=== PATIENT | female | born 1970 | race Caucasian/White ===

== ENCOUNTER 2023-08-17 15:15 | Emergency (ER) | payer MEDICAID, SELFPAY ==
[2023-08-17 15:40] VITALS: BP 107/74; PULSE 78; RESP 18; TEMP 36.6; O2SAT 95; BMI 28.3
--- NOTE | 2023-08-17 15:43 | XR_ITS ---
FINAL REPORT CLINICAL HISTORY: fall, left knee pain COMPARISON: None FINDINGS: Three views of the left knee reveal no evidence of fracture or dislocation. The bony alignment is normal. The joint spaces are preserved. There is no evidence of joint effusion. No localized soft tissue abnormality is seen. IMPRESSION: No acute abnormality identified. Reviewed, Interpreted and Dictated by Naveed Leggett III, MD Transcribed by Annel Palmer Authenticated and [facility]
--- NOTE | 2023-08-17 15:43 | XR_ITS ---
FINAL REPORT CLINICAL HISTORY: fall, right knee pain COMPARISON: None FINDINGS: Three views of the right knee reveal no evidence of fracture or dislocation. The bony alignment is normal. The joint spaces are preserved. There is no evidence of joint effusion. No localized soft tissue abnormality is identified. IMPRESSION: No acute abnormality identified. Reviewed, Interpreted and Dictated by Naveed Leggett III, MD Transcribed by Annel Palmer Authenticated and [facility]
--- NOTE | 2023-08-17 15:43 | XR_ITS ---
FINAL REPORT CLINICAL HISTORY: fall, right elbow pain COMPARISON: None FINDINGS: RIGHT ELBOW 3 views were obtained. There is no acute fracture or dislocation. There is no joint effusion. The joint spaces are intact. There is no soft tissue abnormality. IMPRESSION: No acute bony abnormality. Reviewed, Interpreted and Dictated by Naveed Leggett III, MD Transcribed by Annel Palmer Authenticated and [facility]
--- NOTE | 2023-08-17 15:43 | XR_ITS ---
FINAL REPORT CLINICAL HISTORY: fall, right shoulder pain COMPARISON: None FINDINGS: RIGHT SHOULDER: 3 views of the right shoulder were obtained. There is no acute fracture or dislocation. There is mild AC joint degenerative change. There is no soft tissue abnormality. IMPRESSION: No acute bony abnormality. Reviewed, Interpreted and Dictated by Naveed Leggett III, MD Transcribed by Annel Palmer Authenticated and [facility]
--- NOTE | 2023-08-17 15:43 | XR_ITS ---
FINAL REPORT CLINICAL HISTORY: fall, right wrist pain COMPARISON: None FINDINGS: RIGHT WRIST Three views demonstrate no acute fracture or dislocation. The visualized joint spaces are normally aligned. The soft tissues are unremarkable. IMPRESSION: No acute bony abnormality. Reviewed, Interpreted and Dictated by Naveed Leggett III, MD Transcribed by Annel Palmer Authenticated and [facility]
--- NOTE | 2023-08-17 18:27 | EXP.UTC ---
Discharge Plan Disposition Patient Disposition: Home, Self-Care Condition: Good Referrals Follow up/Referrals: Provider,Referral, [Primary Care Provider] - See instructions Activity Restrictions/Add. Instructions Additional Instructions/Restrictions: Take Tylenol/Ibuprofen as needed for pain. Follow up with primary care. Clinical Impressions Clinical Impression: Fall as cause of accidental injury in home as place of occurrence Instructions Patient Instructions: DI for Acute Pain -- Adult, DI for Joint Pain, DI for Musculoskeletal Pain Discharge ED Provider: Екатерина Rivero [facility] General Stated complaint: AO 08-16-23 both knees , head, shoulder Mode of Arrival: Ambulatory Source of Information: Patient Limitations: No Limitations Time Seen by Provider: 08/17/23 16:03 Description of Symptoms (Recalled from Triage Doc. by RN): Pt slipped in a puddle of dog urine. She hurts bilateral knee, right shoulder, and left butt. HEENT Symptoms (Recalled from RN notes): No Resp Symptoms (Recalled from RN notes): No Skin Symptoms (Recalled from RN notes): No MS Symptoms (Recalled from RN notes): Yes Functional Status (Recalled from RN notes): n/a Related Data Allergies Allergy/AdvReac Type Severity Reaction Status Date / Time amitriptyline [From Elavil] Allergy Hives Verified 08/17/23 15:57 diazepam [From Valium] Allergy Other Verified 08/17/23 15:57 doxycycline Allergy Nausea Verified 08/17/23 15:57 gabapentin Allergy Hallucinati Verified 08/17/23 15:57 ng melatonin Allergy Other Verified 08/17/23 15:57 meperidine [From Demerol] Allergy Nausea Verified 08/17/23 15:57 Sulfa (Sulfonamide Allergy Hives Verified 08/17/23 15:57 Antibiotics) Worker's Comp Is this a Worker's Comp case?: No [facility] Disclaimer: The information contained in this section may have been updated after the patient was seen, as this information can be updated by other users. Social History Smoking Status: Never smoker alcohol intake: never current occupational status: employed Travel in the last 8 weeks: Inside the [place] ROS Obtained: Yes All systems reviewed & no additional complaints except as documented Constitutional Constitutional: Reports system reviewed and no additional complaints, except as documented Eyes Eyes: Reports system reviewed and no additional complaints, except as documented ENT Ears, Nose, Mouth, and Throat: Reports system reviewed and no additional complaints, except as documented Cardiovascular Cardiovascular: Reports system reviewed and no additional complaints, except as documented Respiratory Respiratory: Reports system reviewed and no additional complaints, except as documented Gastrointestinal Gastrointestingal: Reports system reviewed and no additional complaints, except as documented Genitourinary Female Genitourinary: Reports system reviewed and no additional complaints, except as documented Musculoskeletal Musculoskeletal: Reports system reviewed and no additional complaints, except as documented, Reports arthralgias, Reports myalgias and Reports radiating pain into limb Integumentary/Breasts Skin/Breast: Reports system reviewed and no additional complaints, except as documented Comments: bruising on bilateral knees Neurologic Neurologic: Reports system reviewed and no additional complaints, except as documented Endocrine Endocrine: Reports system reviewed and no additional complaints, except as documented Hematologic/Lymphatic Henatologic/Lymphatic: Reports system reviewed and no additional complaints, except as documented Allergic/Immunologic Allergic/Immunologic: Reports system reviewed and no additional complaints, except as documented Physical Exam General General appearance: alert and in no apparent distress Head Head exam: atraumatic Eye Eye exam: Present normal appearance ENT ENT exam: Present normal exam, normal oropharynx and mucous membranes moist Neck Neck exam: Present normal inspection Chest Chest inspection: Present normal inspection and symmetric chest wall rise Respiratory Respiratory exam: Present normal lung sounds bilaterally Cardiovascular Cardiovascular exam: Present regular rate and normal rhythm Abdominal Exam Abdominal exam: Present soft and normal bowel sounds Expanded Upper Extremity Exam Right: Shoulder exam: Present full ROM and tenderness Arm exam: Present full ROM and tenderness Elbow exam: Present full ROM and tenderness Forearm/Wrist exam: Present full ROM and tenderness Hand exam: Present full ROM and tenderness Vascular exam: Normal capillary refill, radial pulse and ulnar pulse Expanded Lower Extremity Exam Right: Hip/Pelvis exam: Present normal inspection, full ROM and tenderness Upper leg exam: Present normal inspection Knee exam: Present normal inspection, tenderness and ecchymosis Lower leg exam: Present normal inspection Ankle exam: Present normal inspection and tenderness Foot/toe exam: Present normal inspection and tenderness Neurovascular/Tendon exam: Present normal capillary refill Gait: observed and limited by pain Left: Hip/Pelvis exam: Present normal inspection, full ROM and tenderness Upper leg exam: Present normal inspection Knee exam: Present full ROM, tenderness and ecchymosis Lower leg exam: Present normal inspection Ankle exam: Present normal inspection, full ROM and tenderness Foot/toe exam: Present normal inspection, full ROM and tenderness Back Exam Back exam: Present normal inspection Comment: Pt states that body hurts all over and hurts with palpitation. Neurological Exam Neurological exam: Present alert, oriented X3 and CN II-XII intact Psychiatric Psychiatric exam: Present normal affect and normal mood Skin Skin exam: Present warm, dry and intact Lymphatic Lymphatic Findings: no adenopathy Medical Decision Making Anthony Inquiry Pt receiving controlled substance: No Anthony was queried for this patient: No Vital Signs: 08/17/23 15:40 Temperature 97.8 F Temperature Source Oral Pulse Rate [Right Radial] 78 Respiratory Rate 18 Blood Pressure [Right Arm] 107/74 L Blood Pressure Mean [Right Arm] 85 Blood Pressure Source [Right Arm] Automatic Cuff Blood Pressure Position [Right Arm] Sitting 02 Sat by Pulse Oximetry 95 Oxygen Delivery Method Room Air Orders (Tests/Meds): ORDERS Category Date Time Status Shoulder XR right miminum 2 views [XR shoulder RT min Exams 08/17/23 15:43 Completed 2V] Stat XR elbow RT min 3V Stat Exams 08/17/23 15:43 Taken XR knee LT 3V Stat Exams 08/17/23 15:43 Taken XR knee RT 3V Stat Exams 08/17/23 15:43 Taken XR wrist RT min 3V Stat Exams 08/17/23 15:43 Completed Radiology Data #1: Image(s): Ankle and Foot/Toes Image Reviewed: Yes I reviewed the patient's radiology results Preliminary Findings: Normal/NAD #2: Image(s): Knee Image Reviewed: Yes I reviewed the patient's radiology results Preliminary Findings: Normal/NAD #3: Image(s): Shoulder, Elbow and Wrist Image Reviewed: Yes I reviewed the patient's radiology results Preliminary Findings: Normal/NAD
[2023-08-17 18:37] VITALS: BP 107/74; PULSE 78; RESP 19; TEMP 36.6; O2SAT 96
== END 2023-08-17 18:37 | disposition home or self-care (01) ==
PROVIDERS: Emergency Provider Nurse Practitioner Family
DX: M25.561 Pain in right knee (principal); M25.562 Pain in left knee; M25.511 Pain in right shoulder; W01.10XA Fall on same level from slipping, tripping and stumbling with subsequent striking against unspecified object, initial encounter
CPT/HCPCS: 73030; 73080; 73110; 73562; 99204; 99212; G0463

== ENCOUNTER 2023-11-21 11:20 | Emergency (ER) | payer MEDICAID, SELFPAY ==
[2023-11-21 11:22] VITALS: BP 126/88; PULSE 79; RESP 18; TEMP 36.6; O2SAT 96; BMI 29.2
--- NOTE | 2023-11-21 11:30 | HMH.EDGENADL ---
Discharge Plan Disposition Patient Disposition: Home, Self-Care Condition: Good Prescriptions Prescriptions: New ketorolac 10 mg tablet 10 mg PO BID 5 Days Qty: 10 0RF prednisone 20 mg tablet 20 mg PO BID 5 Days Qty: 10 0RF oxycodone 5 mg tablet 5 mg PO Q12H PRN (Reason: pain) 3 Days Qty: 10 0RF Referrals Follow up/Referrals: Moreno Austin DO [Staff Physician] - See instructions Provider,Referral, MD [Primary Care Provider] - See instructions Activity Restrictions/Add. Instructions Additional Instructions/Restrictions: As we discussed, it appears to me on my ultrasound that your pain in your shoulder is possibly attributable to a subscapularis tendon injury which is one of the parts of your rotator cuff. I have prescribed a short course of steroids as well as a course of a anti-inflammatory medication as well as as needed pain medication for breakthrough pain. I have placed a referral to an orthopedic doctor. Please return with any new or worsening symptoms. Clinical Impressions Clinical Impression: Acute pain of right shoulder Print Language Print Language: Sinhala Discharge ED Provider: Edgar Salas General Adult HPI General Chief complaint: PAIN Stated complaint: loss of mobility in right arm w/numbness Time Seen by Provider: 11/21/23 11:30 History of Present Illness HPI narrative: Patient presents for evaluation of right arm pain, ongoing for several months after injury sustained reportedly at physical therapy, with associated shooting pain down the right arm, described as sharp, originating at shoulder, previous therapies include Tylenol, she has been evaluated for similar symptoms in the past reportedly with negative x-rays. Denies any history of diabetes, denies any midline neck pain. No fevers or chills. No sick contacts. Please note that above description of symptoms, in this electronic medical record under categorization of recalled from ER triage doctor by RN are reflective of an initial nursing assessment, however, is not reflective of my full history and physical exam that was personally taken and clarified. Consequentially, this preceding description of symptoms, which may include the patient's categorized chief complaint in the EMR, do not reflect my personal clinical impression, and the ultimate description of history of present illness and patient stated complaints should be deferred to this section of the note. Unless stated otherwise or congruent with this section of the note, additional signs, symptoms, or incongruence should be interpreted as inaccurate with my clinical impression. Related Data Previous Rx's ?Medication ?Instructions ?Recorded ketorolac 10 mg tablet 10 mg PO BID pain 5 days #10 tabs 11/21/23 oxycodone 5 mg tablet 5 mg PO Q12H PRN pain 3 days #10 11/21/23 tabs prednisone 20 mg tablet 20 mg PO BID 5 days #10 tabs 11/21/23 Allergies Allergy/AdvReac Type Severity Reaction Status Date / Time amitriptyline [From Elavil] Allergy Hives Verified 08/17/23 15:57 diazepam [From Valium] Allergy Other Verified 08/17/23 15:57 doxycycline Allergy Nausea Verified 08/17/23 15:57 gabapentin Allergy Hallucinati Verified 08/17/23 15:57 ng melatonin Allergy Other Verified 08/17/23 15:57 meperidine [From Demerol] Allergy Nausea Verified 08/17/23 15:57 Sulfa (Sulfonamide Allergy Hives Verified 08/17/23 15:57 Antibiotics) [facility] Disclaimer: The information contained in this section may have been updated after the patient was seen, as this information can be updated by other users. Social History (Updated 08/17/23 @ 18:41 by Екатерина Rivero APRN) Smoking Status: Never smoker alcohol intake: never current occupational status: employed Travel in the last 8 weeks: Inside the [place] ROS Obtained: Yes other As per HPI Physical Exam General General appearance: alert and in no apparent distress Head Head exam: atraumatic and normocephalic Eye Eye exam: Present normal appearance Neck Neck exam: Present normal inspection Chest Chest inspection: Present normal inspection and symmetric chest wall rise Respiratory Respiratory exam: Present normal lung sounds bilaterally; Absent respiratory distress Cardiovascular Cardiovascular exam: Present regular rate and normal rhythm Abdominal Exam Abdominal exam: Present soft Neurological Exam Neurological exam: Present alert and oriented X3 Psychiatric Psychiatric exam: Present normal affect and normal mood Skin Skin exam: Present warm and dry Other Other exam information: Tenderness to palpation over medial aspect of right shoulder consistent with subscapularis pain, no midline cervical spinal tenderness to palpation, no neurovascular deficit appreciated. Medical Decision Making Medical Records Medical records reviewed: Yes I reviewed the patient's medical records. Anthony Inquiry Pt receiving controlled substance: Yes Anthony was queried for this patient: Yes Risks and benefits of using a controlled substance: were discussed with pt by me Vital Signs: 11/21/23 11:22 11/21/23 12:58 Temperature 97.9 F 98.0 F Temperature Source Oral Pulse Rate 85 Pulse Rate [Radial] 79 Respiratory Rate 18 18 Blood Pressure 117/66 Blood Pressure [Left Arm] 126/88 Blood Pressure Mean [Left Arm] 100 Blood Pressure Source Automatic Cuff Blood Pressure Source [Left Arm] Automatic Cuff Blood Pressure Position [Left Arm] Sitting 02 Sat by Pulse Oximetry 96 Oxygen Delivery Method Room Air Room Air Orders (Tests/Meds): ED MEDICATIONS Discontinued Medications Generic Name Dose Route Start Last Admin Trade Name Renzo PRN Reason Stop Dose Admin Ketorolac Tromethamine 15 mg 11/21/23 12:59 11/21/23 13:00 Ketorolac 30mg/Ml Vial IM 11/21/23 13:00 15 mg ONCE ONE Administration Medical Decision Narrative: Patient with history and exam per above presenting for evaluation of right shoulder pain, chronic Diagnoses considered include rotator cuff injury, no clinical evidence to warrant further evaluation beyond history and physical exam for cervical spinal pathology, nor fracture. No clinical evidence of neurovascular injury. ED workup and treatment included: Toradol 15 mg intramuscular [id number] ultrasound revealed irregularity of subscapularis tendon. This is most likely patient's precipitant of chronic pain. She will follow-up with orthopedic surgery I discussed my clinical impression with patient and answered all questions. At this time, the evidence for any other entities in the differential is insufficient to warrant any further testing or ED observation. This was explained to the patient. The patient was advised that persistent or worsening symptoms require further evaluation. Critical Care Critical Care Time Critical Care Time: No
--- NOTE | 2023-11-21 12:38 | PC.NURSE ---
DR JEROME AT BEDSIDE
[2023-11-21 12:58] VITALS: BP 117/66; PULSE 85; RESP 18; TEMP 36.7; O2SAT 98
[2023-11-21] MEDS: KETOROLAC 30MG/ML VIAL 15 MG IM (13:00)
== END 2023-11-21 13:09 | disposition home or self-care (01) ==
PROVIDERS: Emergency Provider Emergency Medicine
DX: M25.511 Pain in right shoulder (principal)
CPT/HCPCS: 96372; 99283; J1885